=== PATIENT | female | born 1960 | race Caucasian/White ===

== ENCOUNTER 2020-01-21 09:30 | Outpatient (RCR) | payer OTHER, SELFPAY ==
[2019-11-10 09:59] VITALS: BMI 42.5
[2019-12-30 10:01] VITALS: BMI 43.1
[2020-01-07 10:40] VITALS: BP 174/68; PULSE 78; RESP 18; TEMP 37; BMI 43.0
--- NOTE | 2020-01-07 12:41 | HP.PCM_ITS ---
(1) Radiation necrosis of skin and subcutaneous Status: Acute Current Visit: Yes Code(s): L59.8 - Other specified disorders of the skin and subcutaneous tissue related to radiation; Y84.2 - Radiological procedure and radiotherapy as the cause of abnormal reaction of the patient, or of later complication, without mention of misadventure at the time of the procedure (2) Breast cancer in female Status: Chronic Current Visit: Yes Code(s): C50.919 - Malignant neoplasm of unspecified site of unspecified female breast (3) History of bilateral mastectomy Status: Chronic Current Visit: Yes Code(s): Z90.13 - Acquired absence of bilateral breasts and nipples (4) Radiation skin ulcer of chest Status: Acute Current Visit: Yes Code(s): L98.499 - Non-pressure chronic ulcer of skin of other sites with unspecified severity History of Present Illness Date of Service: 01/07/20 Chief Complaint: Radionecrosis/Radiation injury right Chest wall and axilla History of Wound: Ms. Grady is a 59yo The past medical history of breast cancer status post bilateral mastectomy with a recent recurrence noted and is currently undergoing radiation therapy. Referred here by her radiation oncologist due to nonhealing radiation burn/injury. Initially applying Aquaphor with Ramone pads however worsening was noted and she was switched to Silvadene. She reports questionable drainage. Also significant pain to the area. Feels well otherwise. Denies chills, fever, nausea or vomiting. Past Medical History Past Medical History: Chronic Problems (Last Reviewed 12/30/19 @ 10:01 by Vernell Rascon) Breast cancer in female (Chronic) History of bilateral mastectomy (Chronic) Allergies/Adverse Reactions: Allergies acetaminophen [From Percocet] Allergy (Verified 01/07/20 10:35) Anaphylaxis doxycycline Allergy (Verified 01/07/20 10:35) Other RECTAL INFLAMMATION oxycodone [From Percocet] Allergy (Verified 01/07/20 10:35) Anaphylaxis pseudoephedrine HCl [From Sudafed] Allergy (Verified 01/07/20 10:35) Other HEART RACES amoxicillin [From Augmentin] Adverse Reaction (Intermediate, Verified 01/07/20 10:36) Intestinal clavulanic acid [From Augmentin] Adverse Reaction (Intermediate, Verified 01/07/20 10:36) Intestinal esomeprazole magnesium [From Nexium] Adverse Reaction (Intermediate, Verified 01/07/20 10:35) Other STOMACH PAIN Home Medications: Ambulatory Orders Medication Instructions Recorded Antiarthritic Combination No.2 900 mg PO DAILY 04/20/15 [Glucosamine-Chondroitin] Ergocalciferol [Vitamin D] 50,000 unit PO Q7D 11/10/19 Silver Sulfadiazine 1% Crm 1 applic TOPICAL TID #1 bottle 01/05/20 [Silvadene ([facility])] Smoking Status: Former smoker Review of Systems Constitutional: Denies: Anorexia, Chills, Fever, Night Sweats Eyes: Denies: Blurred vision, Pain, Redness HEENT: Denies: Difficulty Hearing, Difficulty Swallowing Cardiovascular: Denies: Chest Pain, Chest Pressure Respiratory: Denies: Cough, Hemoptysis Gastrointestinal: Denies: Abdominal Pain, Hematemesis, Vomiting Genitourinary: Denies: Hematuria Skin: Denies: Jaundice - Physical Exam Vital Signs Temp Pulse Resp BP 98.6 F 78 18 174/68 H 01/07/20 10:40 01/07/20 10:40 01/07/20 10:40 01/07/20 10:40 General: Alert, Oriented x3, Cooperative, No apparent distress HEENT: Atraumatic, Normocephalic Oral: Moist Mucosa Neck: Supple Lungs: Normal air movement Abdomen: Non Tender, Obese Extremities: No cyanosis Skin: Ulcer/ Wound Wound Measurements and Assessment WC - Nurse 1 - General Ulcer Measurement Start: 01/07/20 10:32 Freq: Status: Active Protocol: Activity Type Activity Date Activity User E-Sign Co-Sign Detail Recorded Client Recorded Date Recorded By Document 01/07/20 10:40 DV [id number] 01/07/20 11:03 DV 01/07/20 10:40 Wound Center Nurse 1 [Ulcer Assessment] #2 RIGHT CHEST CLUSTER -Combined with other wound No -Current Size (cm) - Length 6.0 -Current Size (cm) - Width 24.0 -Current Size (cm) - Depth 0.1 -Total Square Cm 144.00 -Date of Last Picture (Recall this 01/07/20 field) -Photo Taken Yes -Epithelialization None Present -Tunneling No -Undermining/Tunneling No -Circular Undermining No -Classification - Thickness Full Thickness without Exposed Support Structure -Exudate Amt Large -Exudate Type Serous -Wound Margin Indistinct, Non -Visible -Granulation Amt None Present (0 %) -Granulation Quality N/A -Slough/Fibrin No -Necrosis Amt None Present (0 %) -Necrotic Tissue Type Adherent Slough -Structure Exposed None/Limited to Skin Breakdown -Texture (Ramonita-wound Skin Appearance) Assessed, Localized Edema ,Scarring -Moisture (Ramonita-wound Skin Appearance Assessed, ) Weeping -Color (Ramonita-wound Skin Appearance) Assessed, Erythema -Temperature (Ramonita-wound Skin No Abnormality Appearance) (Pt Warm) -Tenderness on Palpation (Ramonita-wound Yes Skin Appearance) -Ulcer Cleansing Rinsed/ Irrigated with Saline -Foul Odor after Cleansing No -Anesthetic Used 4% Lidocaine Solution #1 RIGHT AXILLA -Combined with other wound No -Current Size (cm) - Length 4.0 -Current Size (cm) - Width 5.0 -Current Size (cm) - Depth 0.1 -Total Square Cm 20.00 -Date of Last Picture (Recall this 01/07/20 field) -Photo Taken Yes -Epithelialization None Present -Tunneling No -Undermining/Tunneling No -Circular Undermining No -Classification - Thickness Full Thickness without Exposed Support Structure -Exudate Amt Large -Exudate Type Serous -Wound Margin Indistinct, Non -Visible -Granulation Amt None Present (0 %) -Granulation Quality N/A -Slough/Fibrin Yes -Necrosis Amt Medium (34-66%) -Necrotic Tissue Type Adherent Slough -Structure Exposed None/Limited to Skin Breakdown -Texture (Ramonita-wound Skin Appearance) Assessed, Localized Edema ,Scarring -Moisture (Ramonita-wound Skin Appearance Assessed, ) Weeping -Color (Ramonita-wound Skin Appearance) Assessed, Erythema -Tenderness on Palpation (Ramonita-wound Yes Skin Appearance) -Ulcer Cleansing Rinsed/ Irrigated with Saline -Foul Odor after Cleansing No -Anesthetic Used 4% Lidocaine Solution WC - Nurse 2 - General Ulcer CM Notes Start: 01/07/20 10:32 Freq: Status: Active Protocol: Activity Type Activity Date Activity User E-Sign Co-Sign Detail Recorded Client Recorded Date Recorded By Document 01/07/20 11:25 MW [id number] 01/07/20 11:34 MW 01/07/20 11:25 Wound Center Nurse 2 [Procedure/Treatment] #2 RIGHT CHEST CLUSTER -Time 11:26 -Correct Patient Yes -Correct Side, Site, Position Yes -Correct Procedure Yes -Procedure Performed Yes -Type of Procedure Debridement -Clinical Debridement Subcutaneous -Post Debridement Size (cm) - Length 7.0 -Post Debridement Size (cm) - Width 20.0 -Post Debridement Size (cm) - Depth 0.1 -Total Square Cm 140.00 -Wound/Ulcer Outcome Not Healed -Ulcer Cleansing Rinsed/ Irrigated with Saline -Foul Odor after Cleansing No -Bleeding Controlled with Pressure -Offloading No -Treatment Response Procedure Tolerated Well #1 RIGHT AXILLA -Time 11:26 -Correct Patient Yes -Correct Side, Site, Position Yes -Correct Procedure Yes -Procedure Performed No -Wound/Ulcer Outcome Not Healed -Ulcer Cleansing Rinsed/ Irrigated with Saline -Foul Odor after Cleansing No -Bioengineered Tissue No -Bleeding Controlled with Pressure -Offloading No -Treatment Response Procedure Tolerated Well [See Physician Procedure note for Specifics] Pain Scale: 0-10 Numeric [Pain] -Is Patient Pain Free? Yes Musculoskeletal: No Muscle Wasting Neurological: Cranial nerves II-XII grossly intact Debridement Note Post-Debridement Measurements/Treatment WC - Nurse 2 - General Ulcer CM Notes Start: 01/07/20 10:32 Freq: Status: Active Protocol: Activity Type Activity Date Activity User E-Sign Co-Sign Detail Recorded Client Recorded Date Recorded By Document 01/07/20 11:25 MW [id number] 01/07/20 11:34 MW 01/07/20 11:25 Wound Center Nurse 2 #2 RIGHT CHEST CLUSTER -Time 11:26 -Correct Patient Yes -Correct Side, Site, Position Yes -Correct Procedure Yes -Procedure Performed Yes -Type of Procedure Debridement -Clinical Debridement Subcutaneous -Post Debridement Size (cm) - Length 7.0 -Post Debridement Size (cm) - Width 20.0 -Post Debridement Size (cm) - Depth 0.1 -Total Square Cm 140.00 -Wound/Ulcer Outcome Not Healed -Ulcer Cleansing Rinsed/ Irrigated with Saline -Foul Odor after Cleansing No -Bleeding Controlled with Pressure -Offloading No -Treatment Response Procedure Tolerated Well #1 RIGHT AXILLA -Time 11:26 -Correct Patient Yes -Correct Side, Site, Position Yes -Correct Procedure Yes -Procedure Performed No -Wound/Ulcer Outcome Not Healed -Ulcer Cleansing Rinsed/ Irrigated with Saline -Foul Odor after Cleansing No -Bioengineered Tissue No -Bleeding Controlled with Pressure -Offloading No -Treatment Response Procedure Tolerated Well Pain Scale: 0-10 Numeric Is Patient Pain Free? Yes Wound debrided: Right Chest wall Type of Debridement: Excisional debridement Anesthesia Used: 4% Lidocaine Solution Depth: Down to and including healthy tissue, in the subcutaneous layer Percentage of wound debrided: 100 Instrument Used: 5mm curette Tissue Removed: Slough and devitalized tissue Severity: Fat Layer Exposed Amount of bleeding with debridement: Mild Bleeding Controlled with: Pressure Patient tolerated procedure well Assessment/Plan Active Problems (Last Reviewed 12/30/19 @ 10:01 by Vernell Rascon) Radiation necrosis of skin and subcutaneous (Acute) Breast cancer in female (Chronic) History of bilateral mastectomy (Chronic) Radiation skin ulcer of chest (Acute) Assessment: Same as above. Plan: Debridement done as documented above. Procedure was well-tolerated. Minimal area of subcutaneous ulceration mostly superficial. Okay to go back to Aquaphor healing ointment. Apply copiously 3-4 times daily with Adaptic over top. ABD and tape to secure. Increase protein intake and vitamin C to help with wound healing. Continue other management per radiation oncology. Her questions were answered and she was advised to call with any further questions or concerns. Follow-up in a week. This note was generated with [employer] dictation software. It may contain incorrect words, spelling, and punctuation that were not noted in checking the note before signing. Multi Select Codes - Visit Charges Office Visit/Consults: 78148 OV L3 New - Integumentary Integumentary CPT Codes: 64737 Cyndi subq tissue 20 sq cm/<
[2020-01-14 09:20] VITALS: BP 155/77; PULSE 83; RESP 16; TEMP 36.6; BMI 43.0
--- NOTE | 2020-01-14 09:34 | PN.PCM_ITS ---
(1) Radiation necrosis of skin and subcutaneous Status: Acute Current Visit: Yes Code(s): L59.8 - Other specified disorders of the skin and subcutaneous tissue related to radiation; Y84.2 - Radiological procedure and radiotherapy as the cause of abnormal reaction of the patient, or of later complication, without mention of misadventure at the time of the procedure (2) Breast cancer in female Status: Chronic Current Visit: Yes Code(s): C50.919 - Malignant neoplasm of unspecified site of unspecified female breast (3) History of bilateral mastectomy Status: Chronic Current Visit: Yes Code(s): Z90.13 - Acquired absence of bilateral breasts and nipples (4) Radiation skin ulcer of chest Status: Acute Current Visit: Yes Code(s): L98.499 - Non-pressure chronic ulcer of skin of other sites with unspecified severity Type of Wound Date of Service: 01/14/20 Chief Complaint: Radionecrosis/Radiation injury right Chest wall and axilla History of Wound: Ms. Grady is a 59yo The past medical history of breast cancer status post bilateral mastectomy with a recent recurrence noted and is currently undergoing radiation therapy. Referred here by her radiation oncologist due to nonhealing radiation burn/injury. Initially applying Aquaphor with Ramone pads however worsening was noted and she was switched to Silvadene. She reports questionable drainage. Also significant pain to the area. Feels well otherwise. Denies chills, fever, nausea or vomiting. Progress of Wound: Significant improvement noted in the past week. - Physical Exam Vital Signs Temp Pulse Resp BP 97.8 F 83 16 155/77 H 01/14/20 09:20 01/14/20 09:20 01/14/20 09:20 01/14/20 09:20 General: Alert, Oriented x3, Cooperative, No apparent distress HEENT: Atraumatic, Normocephalic Oral: Moist Mucosa Neck: Supple Lungs: Normal air movement Abdomen: Non Tender, Obese Skin: Ulcer/ Wound Wound Measurements and Assessment WC - Nurse 1 - General Ulcer Measurement Start: 01/07/20 10:32 Freq: Status: Active Protocol: Activity Type Activity Date Activity User E-Sign Co-Sign Detail Recorded Client Recorded Date Recorded By Document 01/14/20 09:20 DL [id number] 01/14/20 09:25 DL 01/14/20 09:20 Wound Center Nurse 1 [Ulcer Assessment] #2 RIGHT CHEST CLUSTER -Combined with other wound No -Current Size (cm) - Length 1.1 -Current Size (cm) - Width 4.2 -Current Size (cm) - Depth 0.1 -Total Square Cm 4.62 -Photo Taken No -Epithelialization Small 1-33% -Tunneling No -Undermining/Tunneling No -Circular Undermining No -Exudate Amt None Present -Wound Margin Flat & Intact -Granulation Amt Large (67-100%) -Granulation Quality Red -Slough/Fibrin Yes -Necrosis Amt Small (1-33%) -Necrotic Tissue Type Adherent Slough -Texture (Ramonita-wound Skin Appearance) Assessed, Scarring -Moisture (Ramonita-wound Skin Appearance Assessed ) -Color (Ramonita-wound Skin Appearance) Assessed, Erythema -Temperature (Ramonita-wound Skin No Abnormality Appearance) (Pt Warm) -Tenderness on Palpation (Ramonita-wound No Skin Appearance) -Ulcer Cleansing Rinsed/ Irrigated with Saline -Foul Odor after Cleansing No -Anesthetic Used 4% Lidocaine Solution #1 RIGHT AXILLA -Combined with other wound No -Current Size (cm) - Length 0.1 -Current Size (cm) - Width 0.1 -Current Size (cm) - Depth 0.1 -Total Square Cm 0.01 -Epithelialization Large 67-100% - Nurse 2 - General Ulcer CM Notes Start: 01/07/20 10:32 Freq: Status: Active Protocol: Activity Type Activity Date Activity User E-Sign Co-Sign Detail Recorded Client Recorded Date Recorded By Document 01/14/20 09:32 MW [id number] 01/14/20 09:33 MW 01/14/20 09:32 Wound Center Nurse 2 [Procedure/Treatment] #2 RIGHT CHEST CLUSTER -Time 09:33 -Correct Patient Yes -Correct Side, Site, Position Yes -Correct Procedure Yes -Procedure Performed No -Wound/Ulcer Outcome Not Healed -Ulcer Cleansing Rinsed/ Irrigated with Saline -Foul Odor after Cleansing No -Bioengineered Tissue No -Bleeding Controlled with Pressure -Offloading No -Treatment Response Procedure Tolerated Well #1 RIGHT AXILLA -Time 09:33 -Correct Patient Yes -Correct Side, Site, Position Yes -Correct Procedure No -Post Debridement Size (cm) - Length 0 -Post Debridement Size (cm) - Width 0 -Post Debridement Size (cm) - Depth 0 -Total Square Cm 0 -Wound/Ulcer Outcome Healed- Epithelialized [See Physician Procedure note for Specifics] Pain Scale: 0-10 Numeric [Pain] -Is Patient Pain Free? Yes Musculoskeletal: No Muscle Wasting Neurological: Cranial nerves II-XII grossly intact Psych/Mental Status: Normal Affect Debridement Note Post-Debridement Measurements/Treatment WC - Nurse 2 - General Ulcer CM Notes Start: 01/07/20 10:32 Freq: Status: Active Protocol: Activity Type Activity Date Activity User E-Sign Co-Sign Detail Recorded Client Recorded Date Recorded By Document 01/07/20 11:25 MW [id number] 01/07/20 11:34 MW Document 01/14/20 09:32 MW [id number] 01/14/20 09:33 MW 01/07/20 01/14/20 11:25 09:32 Wound Center Nurse 2 #2 RIGHT CHEST CLUSTER -Time 11: 09:33 -Correct Patient Yes Yes -Correct Side, Site, Position Yes Yes -Correct Procedure Yes Yes -Procedure Performed Yes No -Type of Procedure Debridement -Clinical Debridement Subcutaneous -Post Debridement Size (cm) - Length 7.0 -Post Debridement Size (cm) - Width 20.0 -Post Debridement Size (cm) - Depth 0.1 -Total Square Cm 140.00 -Wound/Ulcer Outcome Not Healed Not Healed -Ulcer Cleansing Rinsed/ Rinsed/ Irrigated with Irrigated with Saline Saline -Foul Odor after Cleansing No No -Bioengineered Tissue No -Bleeding Controlled with Pressure Pressure -Offloading No No -Treatment Response Procedure Procedure Tolerated Well Tolerated Well #1 RIGHT AXILLA -Time 11: 09:33 -Correct Patient Yes Yes -Correct Side, Site, Position Yes Yes -Correct Procedure Yes No -Procedure Performed No -Post Debridement Size (cm) - Length 0 -Post Debridement Size (cm) - Width 0 -Post Debridement Size (cm) - Depth 0 -Total Square Cm 0 -Wound/Ulcer Outcome Not Healed Healed- Epithelialized -Ulcer Cleansing Rinsed/ Irrigated with Saline -Foul Odor after Cleansing No -Bioengineered Tissue No -Bleeding Controlled with Pressure -Offloading No -Treatment Response Procedure Tolerated Well Pain Scale: 0-10 Numeric Is Patient Pain Free? Yes Yes No debridement was completed today Assessment/Plan Active Problems (Last Reviewed 12/30/19 @ 10:01 by Vernell Hayden Radiation necrosis of skin and subcutaneous (Acute) Breast cancer in female (Chronic) History of bilateral mastectomy (Chronic) Radiation skin ulcer of chest (Acute) Assessment: Same as above. Plan: No Debridement completed today, none deemed necessary. Significant improvement in the past week. Continue Aquaphor healing ointment. Apply copiously 3-4 times daily with Adaptic over top. ABD and tape to secure. Increase protein intake and vitamin C to help with wound healing. Continue other management per radiation oncology. Her questions were answered and she was advised to call with any further questions or concerns. Follow-up in a week. This note was generated with [employer] dictation software. It may contain incorrect words, spelling, and punctuation that were not noted in checking the note before signing. Office Visits / Consults: [id number] OV L3 Est
[2020-01-21 09:16] VITALS: BP 154/73; PULSE 79; RESP 20; TEMP 36.6; BMI 43.0
--- NOTE | 2020-01-21 10:09 | PN.PCM_ITS ---
(1) Radiation necrosis of skin and subcutaneous Status: Acute Current Visit: Yes Code(s): L59.8 - Other specified disorders of the skin and subcutaneous tissue related to radiation; Y84.2 - Radiological procedure and radiotherapy as the cause of abnormal reaction of the patient, or of later complication, without mention of misadventure at the time of the procedure (2) Breast cancer in female Status: Chronic Current Visit: Yes Code(s): C50.919 - Malignant neoplasm of unspecified site of unspecified female breast (3) History of bilateral mastectomy Status: Chronic Current Visit: Yes Code(s): Z90.13 - Acquired absence of bilateral breasts and nipples (4) Radiation skin ulcer of chest Status: Acute Current Visit: Yes Code(s): L98.499 - Non-pressure chronic ulcer of skin of other sites with unspecified severity Type of Wound Date of Service: 01/21/20 Chief Complaint: Radionecrosis/Radiation injury right Chest wall and axilla History of Wound: Ms. Grady is a 59yo The past medical history of breast cancer status post bilateral mastectomy with a recent recurrence noted and is currently undergoing radiation therapy. Referred here by her radiation oncologist due to nonhealing radiation burn/injury. Initially applying Aquaphor with Ramone pads however worsening was noted and she was switched to Silvadene. She reports questionable drainage. Also significant pain to the area. Feels well otherwise. Denies chills, fever, nausea or vomiting. Progress of Wound: Healed, no new concerns. - Physical Exam Vital Signs Temp Pulse Resp BP 97.8 F 79 20 H 154/73 H 01/21/20 09:16 01/21/20 09:16 01/21/20 09:16 01/21/20 09:16 General: Alert, Oriented x3, Cooperative, No apparent distress HEENT: Atraumatic, Normocephalic Oral: Moist Mucosa Neck: Supple Lungs: Normal air movement Abdomen: Non Tender, Obese Extremities: No cyanosis Wound Measurements and Assessment WC - Nurse 1 - General Ulcer Measurement Start: 01/07/20 10:32 Freq: Status: Active Protocol: Activity Type Activity Date Activity User E-Sign Co-Sign Detail Recorded Client Recorded Date Recorded By Document 01/21/20 09:16 DL [id number] 01/21/20 09:22 DL 01/21/20 09:16 Wound Center Nurse 1 [Ulcer Assessment] #2 RIGHT CHEST CLUSTER -Current Size (cm) - Length 0 -Current Size (cm) - Width 0 -Current Size (cm) - Depth 0 -Total Square Cm 0 -Exudate Amt None Present -Wound Margin Flat & Intact -Granulation Amt Large (67-100%) -Granulation Quality [place] -Necrosis Amt None Present (0 %) -Structure Exposed N/A -Texture (Ramonita-wound Skin Appearance) Scarring -Moisture (Ramonita-wound Skin Appearance No Abnormality ) -Color (Ramonita-wound Skin Appearance) Rubor -Temperature (Ramonita-wound Skin No Abnormality Appearance) (Pt Warm) -Tenderness on Palpation (Ramonita-wound No Skin Appearance) -Ulcer Cleansing Rinsed/ Irrigated with Saline -Foul Odor after Cleansing No Musculoskeletal: No Muscle Wasting Neurological: Cranial nerves II-XII grossly intact Psych/Mental Status: Normal Affect Debridement Note Post-Debridement Measurements/Treatment WC - Nurse 2 - General Ulcer CM Notes Start: 01/07/20 10:32 Freq: Status: Active Protocol: Activity Type Activity Date Activity User E-Sign Co-Sign Detail Recorded Client Recorded Date Recorded By Document 01/07/20 11:25 MW [id number] 01/07/20 11:34 MW Document 01/14/20 09:32 MW [id number] 01/14/20 09:33 MW 01/07/20 01/14/20 11:25 09:32 Wound Center Nurse 2 #2 RIGHT CHEST CLUSTER -Time 11: 09:33 -Correct Patient Yes Yes -Correct Side, Site, Position Yes Yes -Correct Procedure Yes Yes -Procedure Performed Yes No -Type of Procedure Debridement -Clinical Debridement Subcutaneous -Post Debridement Size (cm) - Length 7.0 -Post Debridement Size (cm) - Width 20.0 -Post Debridement Size (cm) - Depth 0.1 -Total Square Cm 140.00 -Wound/Ulcer Outcome Not Healed Not Healed -Ulcer Cleansing Rinsed/ Rinsed/ Irrigated with Irrigated with Saline Saline -Foul Odor after Cleansing No No -Bioengineered Tissue No -Bleeding Controlled with Pressure Pressure -Offloading No No -Treatment Response Procedure Procedure Tolerated Well Tolerated Well #1 RIGHT AXILLA -Time 11: 09:33 -Correct Patient Yes Yes -Correct Side, Site, Position Yes Yes -Correct Procedure Yes No -Procedure Performed No -Post Debridement Size (cm) - Length 0 -Post Debridement Size (cm) - Width 0 -Post Debridement Size (cm) - Depth 0 -Total Square Cm 0 -Wound/Ulcer Outcome Not Healed Healed- Epithelialized -Ulcer Cleansing Rinsed/ Irrigated with Saline -Foul Odor after Cleansing No -Bioengineered Tissue No -Bleeding Controlled with Pressure -Offloading No -Treatment Response Procedure Tolerated Well Pain Scale: 0-10 Numeric Is Patient Pain Free? Yes Yes No debridement was completed today Assessment/Plan Active Problems (Last Reviewed 12/30/19 @ 10:01 by Vernell Rascon) Radiation necrosis of skin and subcutaneous (Acute) Breast cancer in female (Chronic) History of bilateral mastectomy (Chronic) Radiation skin ulcer of chest (Acute) Assessment: Same as above. Plan: No Debridement completed today, healed. Continue Aquaphor, she was advised to apply as often as she can. Continue other management per radiation oncology. Her questions were answered and she was advised to call with any further questions or concerns. Discharged from the wound clinic. This note was generated with [employer] dictation software. It may contain incorrect words, spelling, and punctuation that were not noted in checking the note before signing. Office Visits / Consults: [id number] OV L3 Est
== END 2020-01-24 23:59 ==
LOC: WC 09:30
PROVIDERS: PCP Physician Assistant Medical; Referring Provider Student in an Organized Health Care Education/Training Program; Visit Provider Internal Medicine
DX: L59.8 Other specified disorders of the skin and subcutaneous tissue related to radiation (principal); Y84.2 Radiological procedure and radiotherapy as the cause of abnormal reaction of the patient, or of later complication, without mention of misadventure at the time of the procedure; C50.919 Malignant neoplasm of unspecified site of unspecified female breast; Z87.891 Personal history of nicotine dependence; L98.492 Non-pressure chronic ulcer of skin of other sites with fat layer exposed; Z90.13 Acquired absence of bilateral breasts and nipples
CPT/HCPCS: 11042; 99212; 99213; G0463

== ENCOUNTER → 2023-03-29 | Outpatient (CLI) | payer OTHER, SELFPAY ==
[2020-02-19 09:06] VITALS: BMI 42.0
--- NOTE | 2023-03-29 09:50 | US_ITS ---
STUDY: SUPERFICIAL ULTRASOUND - RIGHT LATERAL CHEST WALL. REASON FOR EXAM: Female, 62 years old. Lump felt in right chest wall . Patient has a history of her breast cancer with bilateral mastectomy. TECHNIQUE: A superficial ultrasound was performed with real-time and static elvy-scale imaging. COMPARISON: None. FINDINGS: The right lateral chest wall just inferior and lateral to the incision was examined. No sonographic abnormality is seen. Small amount of residual breast tissue is seen. US/Chest IMPRESSION: No sonographic abnormality is seen. Electronically Signed: Jose Cruz Wilde MD at 10:46 EDT ,
== END | disposition home or self-care (01) ==
LOC: US 09:43
PROVIDERS: PCP Physician Assistant Medical; Referring Provider Student in an Organized Health Care Education/Training Program; Visit Provider Student in an Organized Health Care Education/Training Program
DX: C50.919 Malignant neoplasm of unspecified site of unspecified female breast (principal)
CPT/HCPCS: 76604